=== PATIENT | female | born 1970 | race Caucasian/White ===

== ENCOUNTER 2021-01-14 13:07 | Emergency (ER) | payer MEDICAID ==
[~2021-01-14] VITALS: Ht 157.5 cm; Wt 50.0 kg
[2021-01-14 14:44] LABS: CLARITY,URINE CLOUDY (Clear); COLOR,URINE YELLOW (Yellow); GLUCOSE, URINE NEGATIVE (Neg); KETONES,URINE NEGATIVE (Neg); LEUKOCYTE ESTERASE ,URINE TRACE (Neg); NITRITES, URINE NEGATIVE (Neg); OCCULT BLOOD,URINE TRACE-INTACT (Neg); PH,URINE 6.5 (4.8-8.0); PROTEIN,URINE TRACE mg/dl (Neg)
[2021-01-14 14:45] LABS: UA COLLECTION TYPE CLN CATCH MIDSTREAM
[2021-01-14 14:46] LABS: BASOPHILS # (AUTO) 0.1 X10'3 (0-0.2); BASOPHILS % (AUTO) 1.1 % (0-1); EOSINOPHILS # (AUTO) 0.1 X10'3 (0-0.9)
[2021-01-14 14:48] LABS: EOSINOPHILS % (AUTO) 1.6 % (0-6); LYMPHOCYTES # (AUTO) 2.2 X10'3 (1.1-4.8); LYMPHOCYTES % (AUTO) 26.8 % (21-51); MEAN CORPUSCULAR VOLUME 100.1 FL (78-98); MEAN PLATELET VOLUME 7.9 FL (7.4-10.4); MONOCYTES # (AUTO) 0.6 X10'3 (0-0.9); MONOCYTES % (AUTO) 7.9 % (2-12); NEUTROPHILS % (AUTO) 62.6 % (42-75); PLATELET COUNT 262 X10'3 (140-440); RED CELL DISTRIBUTION WIDTH 19.4 % (11.5-14.5)
[2021-01-14 14:51] LABS: HEMOGLOBIN 19.1 g/dl (12.0-16.0)
[2021-01-14 15:00] LABS: ALANINE AMINOTRANSFERASE 16 U/L (12-78); ALBUMIN 3.5 G/DL (3.4-5.0); ALBUMIN/GLOBULIN RATIO 0.9 (1.1-1.5); ALKALINE PHOSPHATASE 134 IU/L (46-116); ANION GAP 13 (8-16); ASPARTATE AMINO TRANSFERASE 35 U/L (10-37); BILIRUBIN,TOTAL 0.4 MG/DL (0.1-1.0); BLOOD UREA NITROGEN 4 MG/DL (7-18); BUN/CREATININE RATIO 7.7 (6.6-38.0); CALCIUM 8.6 MG/DL (8.5-10.1); CHLORIDE 109 MMOL/L (99-107); CREATININE 0.52 MG/DL (0.40-0.90); GLUCOSE 93 MG/DL (70-104); LIPASE 92 U/L (73-393); POTASSIUM 3.8 MMOL/L (3.5-5.1); SODIUM 145 MMOL/L (135-145); TOTAL PROTEIN 7.6 G/DL (6.4-8.2); eGFR > 90 ML/MIN
[2021-01-14 15:06] LABS: MUCUS STRANDS MANY /LPF (Neg); SQUAMOUS EPITHELIAL CELL,UR MANY /LPF (FEW)
[2021-01-14 15:07] LABS: BACTERIA,URINE 1+ /HPF (Neg); RBC,URINE 0-2 /HPF (0-2)
[2021-01-14 16:22] LABS: PLATELET ESTIMATE NORMAL
[2021-01-14 16:23] LABS: ANISOCYTOSIS 2+
[2021-01-14 17:34] LABS: ETHANOL < 0.010 GM/DL (0.0-0.010); MAGNESIUM 1.8 MG/DL (1.5-2.4)
[2021-01-14] MEDS ORDERED: HYDR-3965 PO (20:22)
[2021-01-14 20:32] VITALS: BP 131/90
== END 2021-01-14 20:34 | disposition home or self-care (01) ==
LOC: ER 13:08
DX: R10.84 Generalized abdominal pain (principal); Z79.899 Other long term (current) drug therapy
CPT/HCPCS: 36415; 80053; 80320; 81001; 83690; 83735; 85008; 85025; 99283

== ENCOUNTER 2021-02-10 06:22 | Day surgery (SDC) | payer MEDICAID ==
[~2021-02-10] VITALS: Ht 157.5 cm; Wt 48.6 kg
[~2021-02-10 06:22] MED LIST: HYDR-3965 PO
[2021-02-10 06:30] VITALS: BP 114/74
[2021-02-10] MEDS ORDERED: OMEP20TA5 PO (07:06)
[2021-02-10] MEDS ORDERED: LACT1CAP65 PO (07:07)
[2021-02-10] MEDS ORDERED: MULT-1085 PO (07:07)
[2021-02-10] MEDS ORDERED: fentaNYL/PF 50MCG/1 ML 2ML syringe ONE (07:18)
[2021-02-10] MEDS ORDERED: LIDOcaine Viscous 15ml cup ONE (07:18)
[2021-02-10] MEDS ORDERED: MIDAZolam 1 MG/ML 5ML VIAL ONE (07:18)
[2021-02-10 08:25] VITALS: BP 116/82
[2021-02-10 08:35] VITALS: BP 119/84
[2021-02-10 08:45] VITALS: BP 123/76
[2021-02-10 08:55] VITALS: BP 116/58
== END 2021-02-10 09:00 | disposition home or self-care (01) ==
LOC: GI LAB 06:22
PROVIDERS: ATTEND Internal Medicine Gastroenterology
DX: R13.10 Dysphagia, unspecified (principal); R10.84 Generalized abdominal pain; K22.5 Diverticulum of esophagus, acquired; K22.2 Esophageal obstruction; K29.50 Unspecified chronic gastritis without bleeding; K29.80 Duodenitis without bleeding; K20.80 Other esophagitis without bleeding; F17.210 Nicotine dependence, cigarettes, uncomplicated; Z88.8 Allergy status to other drugs, medicaments and biological substances; Z79.899 Other long term (current) drug therapy
CPT/HCPCS: 43239; 43248; 99152; C1769; J2250; J3010; J7040; Z7512; 99153; A4620